=== PATIENT | male | born 1990 | race Caucasian/White ===

== ENCOUNTER 2019-12-25 12:19 | Emergency (ER) | payer OTHER ==
[2019-12-25 12:31] VITALS: BP 135/85; PULSE 109; RESP 18; TEMP 99.1
[2019-12-25] MEDS ORDERED: PENICILLIN VK 500MG STARTER 4 TAB BTL PO STA (13:05)
--- NOTE | 2019-12-25 13:08 | ED ---
General Adult HPI - General Chief complaint: Dental/Oral Stated complaint: tooth abcess Time Seen by Provider: 12/25/19 12:49 Source: patient, RN notes reviewed Mode of arrival: ambulatory Limitations: no limitations - History of Present Illness Initial comments: 29-year-old male presents to the emergency department for a chief complaint of dental pain. Patient states he has had this problem before a few years ago and he had an abscess that needed to be drained. Patient states he feels the same way at this time. States it is swelling in the right side of his face. States it started yesterday afternoon. Patient denies any difficulty swallowing or trismus. Denies any sublingual edema. Denies neck pain or stiffness. Denies fevers or chills. Patient states he never followed up with a dentist for his previous dental abscess.Patient has no other complaints at this time including shortness of breath, chest pain, abdominal pain, nausea or vomiting, headache, or visual changes. - Related Data Previous Rx's Medication Instructions Recorded Penicillin V Potassium [Pen Vee K] 500 mg PO Q6H 10 Days #40 tablet 12/25/19 Allergies Allergy/AdvReac Type Severity Reaction Status Date / Time No Known Allergies Allergy Verified 12/25/19 13:09 Review of Systems ROS Statement: Those systems with pertinent positive or pertinent negative responses have been documented in the HPI. ROS Other: All systems not noted in ROS Statement are negative. Past Medical History Past Medical History: No Reported History History of Any Multi-Drug Resistant Organisms: None Reported Past Surgical History: No Surgical Hx Reported Past Psychological History: No Psychological Hx Reported Past Alcohol Use History: Rare Past Drug Use History: None Reported General Exam Limitations: no limitations General appearance: alert, in no apparent distress Head exam: Present: atraumatic, normocephalic, normal inspection Eye exam: Present: normal appearance, PERRL, EOMI. Absent: scleral icterus, conjunctival injection, periorbital swelling ENT exam: Present: normal exam, mucous membranes moist, TM's normal bilaterally, normal external ear exam, other (Minimal edema noted to the right side of the face along the with sinus frontal sinus area. No sublingual edema). Absent: normal oropharynx (Patient has abscess above the right upper canine tooth.) Neck exam: Present: normal inspection, full ROM. Absent: tenderness, meningismus, lymphadenopathy Respiratory exam: Present: normal lung sounds bilaterally. Absent: respiratory distress, wheezes, rales, rhonchi, stridor Cardiovascular Exam: Present: regular rate, normal rhythm, normal heart sounds. Absent: systolic murmur, diastolic murmur, rubs, gallop, clicks GI/Abdominal exam: Present: soft, normal bowel sounds. Absent: distended, tenderness, guarding, rebound, rigid Neurological exam: Present: alert Course Vital Signs 12/25/19 12:28 Temperature 99.1 F Pulse Rate 109 H Respiratory 18 Rate Blood Pressure 135/85 O2 Sat by Pulse 99 Oximetry Procedures - Incision & Drainage Consent Obtained: verbal consent Indication: Dental abscess Site: oral Size (cm): 1 I&D Drainage Obtained: Pus Patient Tolerated Procedure: well, no complications Medical Decision Making - Medical Decision Making Dental abscess above the right upper canine was incised with 18-gauge needle, purulent material expelled. HPI and physical exam is documented otherwise. Patient tachycardic likely secondary to anxiety as he was nervous about having drainage done. Patient was started on penicillin. Patient will be discharged home to follow up with dentist. Disposition Clinical Impression: Dental abscess Disposition: HOME SELF-CARE Condition: Good Instructions (If sedation given, give patient instructions): Dental Abscess (ED) Additional Instructions: Please take antibiotic as directed. Take Motrin and Tylenol for pain. Ice the right side of the face. Follow-up with dentist in 1-2 days. If you have any worsening symptoms such as worsening swelling or fevers after being on antibiotics for 24 hours return to the emergency room. [facility] [address] [address] (existing clients only) New clients: [phone] 1st consult: $50 (includes XRs) Usually 30% less than private dentist for visits after. [employer] Have to pay $50 for Xrays and rest is covered [phone] Prescriptions: Penicillin V Potassium [Pen Vee K] 500 mg PO Q6H 10 Days #40 tablet Is patient prescribed a controlled substance at d/c from ED?: No Referrals: None,Stated [Primary Care Provider] - 1-2 days Time of Disposition: 13:07
== END 2019-12-25 13:28 | disposition home or self-care (01) ==
LOC: EC 12:19
DX: K04.7 Periapical abscess without sinus (principal)
CPT/HCPCS: 41800; 99282

== ENCOUNTER 2020-07-25 01:25 | Observation (INO) | payer OTHER ==
[2020-07-25] MEDS ORDERED: IBUPROFEN 800 MG TAB PO STA (01:44)
[2020-07-25] MEDS ORDERED: ACETAMINOPHEN TAB 500 MG TAB PO STA (01:44)
--- NOTE | 2020-07-25 02:05 | XR ---
EXAM: XR Chest, 1 View CLINICAL HISTORY: ITS.REASON XR Reason: fever TECHNIQUE: Frontal view of the chest. COMPARISON: none available FINDINGS: Lungs: Unremarkable. No consolidation. Pleural space: Unremarkable. No pneumothorax. Heart: Unremarkable. No cardiomegaly. Mediastinum: Unremarkable. Bones/joints: Unremarkable. IMPRESSION: No acute pulmonary process.
[2020-07-25] MEDS ORDERED: SODIUM CHLORIDE 0.9% 1,000 ML IV STA ×2 (02:12)
--- NOTE | 2020-07-25 02:13 | ED ---
Fever HPI - General Chief Complaint: Fever Stated Complaint: Weakness, Headache Time Seen by Provider: 07/25/20 01:44 Source: patient, RN notes reviewed, old records reviewed Mode of arrival: ambulatory Limitations: no limitations - History of Present Illness Initial Comments: This is a 29-year-old male presenting for severe weakness, patient feels like he may have coronavirus, has had cough bodyaches pains occasional nausea vomiting abdominal pain. Worsening symptoms for a few days now. No other significant recent travel history. Patient is unsure that he has significant sick contacts. No real prior medical history per the patient himself denies drugs denies alcohol or any other complaints MD Complaint: fever, weakness -: days(s) Temperature Source: subjective, oral Associated Symptoms: chills, rigors, myalgias, cough, abdominal pain, nausea Treatments Prior to Arrival: none - Related Data Home Medications Medication Instructions Recorded Confirmed No Known Home Medications 07/25/20 07/25/20 Allergies Allergy/AdvReac Type Severity Reaction Status Date / Time No Known Allergies Allergy Verified 07/25/20 06:36 Review of Systems ROS Statement: Those systems with pertinent positive or pertinent negative responses have been documented in the HPI. ROS Other: All systems not noted in ROS Statement are negative. Past Medical History Past Medical History: No Reported History History of Any Multi-Drug Resistant Organisms: None Reported Past Surgical History: No Surgical Hx Reported Past Psychological History: No Psychological Hx Reported Smoking Status: Current every day smoker Past Alcohol Use History: Rare Past Drug Use History: None Reported - Past Family History Father Additional Family Medical History / Comment(s): Triple bypass surgery Mother Family Medical History: Diabetes Mellitus General Exam Limitations: no limitations General appearance: alert, in no apparent distress Head exam: Present: atraumatic, normocephalic, normal inspection Eye exam: Present: normal appearance, PERRL, EOMI. Absent: scleral icterus, conjunctival injection, periorbital swelling ENT exam: Present: normal exam, mucous membranes moist Neck exam: Present: normal inspection. Absent: tenderness, meningismus, lymphadenopathy Respiratory exam: Present: normal lung sounds bilaterally. Absent: respiratory distress, wheezes, rales, rhonchi, stridor Cardiovascular Exam: Present: normal rhythm, tachycardia, normal heart sounds. Absent: systolic murmur, diastolic murmur, rubs, gallop, clicks GI/Abdominal exam: Present: soft, tenderness, guarding (Right upper quadrant), normal bowel sounds. Absent: distended, rebound, rigid Extremities exam: Present: normal inspection, full ROM, normal capillary refill. Absent: tenderness, pedal edema, joint swelling, calf tenderness Back exam: Present: normal inspection Neurological exam: Present: alert, oriented X3, CN II-XII intact Psychiatric exam: Present: normal affect, normal mood Skin exam: Present: warm, dry, intact, normal color. Absent: rash Course Vital Signs 07/25/20 07/25/20 07/25/20 01:28 02:58 04:24 Temperature 101.8 F H 100.2 F H 99.5 F Pulse Rate 111 H 98 90 Respiratory 24 20 18 Rate Blood Pressure 134/75 120/66 125/67 O2 Sat by Pulse 98 99 99 Oximetry 07/25/20 06:49 Temperature 98.9 F Pulse Rate 88 Respiratory 18 Rate Blood Pressure 123/70 O2 Sat by Pulse 98 Oximetry - Reevaluation(s) Reevaluation #1: 07/25/20 03:31 Medical record is reviewed Reevaluation #2: 07/25/20 03:31 Patient's fevers improved but still just generally feels unwell here in the ER Reevaluation #3: 07/25/20 03:31 Patient informed of initial results and questions are answered - Consultations Consultation #1: spoke w Dr Keating who will consult. spoke w Dr Poole who will see patient in consult spoke w Ian Lugo who is ok for admission Medical Decision Making - Medical Decision Making 9 male presents with fever today, significant jaundice and elevated fever. Patient has one week of positive illness, all imaging is negative. Patient will be admitted for both GI consultation, further testing pending - Lab Data Result diagrams: 07/25/20 02:17 07/25/20 02:17 Lab Results 07/25/20 07/25/20 07/25/20 Range/Units 01:46 02:17 02:17 WBC 5.4 (3.8-10.6) k/uL RBC 4.81 (4.30-5.90) m/uL Hgb 14.7 (13.0-17.5) gm/dL Hct 41.6 (39.0-53.0) % MCV 86.5 (80.0-100.0) fL MCH 30.5 (25.0-35.0) pg MCHC 35.3 (31.0-37.0) g/dL RDW 12.6 (11.5-15.5) % Plt Count 100 L (150-450) k/uL MPV 9.9 Neutrophils % (Manual) 53 % Band Neuts % (Manual) 12 % Lymphocytes % (Manual) 21 % Monocytes % (Manual) 14 % Neutrophils # (Manual) 3.50 (1.3-7.7) k/uL Lymphocytes # (Manual) 1.13 (1.0-4.8) k/uL Monocytes # (Manual) 0.76 (0-1.0) k/uL Nucleated RBCs 0 (0-0) /100 WBC Manual Slide Review Performed RBC Morphology Normal PT (9.0-12.0) sec INR (<1.2) APTT (22.0-30.0) sec Sodium 127 L (137-145) mmol/L Potassium 4.1 (3.5-5.1) mmol/L Chloride 93 L (98-107) mmol/L Carbon Dioxide 25 (22-30) mmol/L Anion Gap 9 mmol/L BUN 13 (9-20) mg/dL Creatinine 0.78 (0.66-1.25) mg/dL Est GFR (CKD-EPI)AfAm >90 (>60 ml/min/1.73 sqM) Est GFR (CKD-EPI)NonAf >90 (>60 ml/min/1.73 sqM) Glucose 129 H (74-99) mg/dL Plasma Lactic Acid Javi (0.7-2.0) mmol/L Calcium 8.6 (8.4-10.2) mg/dL Magnesium 1.9 (1.6-2.3) mg/dL Ferritin 6588.9 H (22.0-322.0) ng/mL Total Bilirubin 6.6 H (0.2-1.3) mg/dL Conjugated Bilirubin 3.8 H (0.0-0.3) mg/dL Unconjugated Bilirubin 1.1 (0.0-1.1) mg/dL Delta Bilirubin 1.7 H (0.0-0.2) mg/dL GGT (15-73) U/L AST 237 H (17-59) U/L ALT 238 H (4-49) U/L Alkaline Phosphatase 324 H (38-126) U/L Ammonia (<30) umol/L Lactate Dehydrogenase 2712 H (313-618) U/L C-Reactive Protein 65.4 H (<10.0) mg/L Total Protein 6.7 (6.3-8.2) g/dL Albumin 3.6 (3.5-5.0) g/dL Lipase 175 (23-300) U/L Acetaminophen 13.9 ug/mL Serum Alcohol <10 mg/dL Coronavirus (PCR) Not Detected (Not Detectd) Hepatitis A IgM Ab (Non-Reactive) Hep Bs Antigen (Non-Reactive) Hep B Core IgM Ab (Non-Reactive) Hep C IgG Ab (Non-Reactive) Heterophile Antibody (Negative) Influenza Type A RNA (Not Detectd) Influenza Type B (PCR) (Not Detectd) 07/25/20 07/25/20 07/25/20 Range/Units 02:17 02:17 02:17 WBC (3.8-10.6) k/uL RBC (4.30-5.90) m/uL Hgb (13.0-17.5) gm/dL Hct (39.0-53.0) % MCV (80.0-100.0) fL MCH (25.0-35.0) pg MCHC (31.0-37.0) g/dL RDW (11.5-15.5) % Plt Count (150-450) k/uL MPV Neutrophils % (Manual) % Band Neuts % (Manual) % Lymphocytes % (Manual) % Monocytes % (Manual) % Neutrophils # (Manual) (1.3-7.7) k/uL Lymphocytes # (Manual) (1.0-4.8) k/uL Monocytes # (Manual) (0-1.0) k/uL Nucleated RBCs (0-0) /100 WBC Manual Slide Review RBC Morphology PT 11.3 (9.0-12.0) sec INR 1.1 (<1.2) APTT 24.5 (22.0-30.0) sec Sodium (137-145) mmol/L Potassium (3.5-5.1) mmol/L Chloride (98-107) mmol/L Carbon Dioxide (22-30) mmol/L Anion Gap mmol/L BUN (9-20) mg/dL Creatinine (0.66-1.25) mg/dL Est GFR (CKD-EPI)AfAm (>60 ml/min/1.73 sqM) Est GFR (CKD-EPI)NonAf (>60 ml/min/1.73 sqM) Glucose (74-99) mg/dL Plasma Lactic Acid Javi 0.9 (0.7-2.0) mmol/L Calcium (8.4-10.2) mg/dL Magnesium (1.6-2.3) mg/dL Ferritin (22.0-322.0) ng/mL Total Bilirubin (0.2-1.3) mg/dL Conjugated Bilirubin (0.0-0.3) mg/dL Unconjugated Bilirubin (0.0-1.1) mg/dL Delta Bilirubin (0.0-0.2) mg/dL GGT (15-73) U/L AST (17-59) U/L ALT (4-49) U/L Alkaline Phosphatase (38-126) U/L Ammonia 9 (<30) umol/L Lactate Dehydrogenase (313-618) U/L C-Reactive Protein (<10.0) mg/L Total Protein (6.3-8.2) g/dL Albumin (3.5-5.0) g/dL Lipase (23-300) U/L Acetaminophen ug/mL Serum Alcohol mg/dL Coronavirus (PCR) (Not Detectd) Hepatitis A IgM Ab Non-Reactive (Non-Reactive) Hep Bs Antigen Non-Reactive (Non-Reactive) Hep B Core IgM Ab Non-Reactive (Non-Reactive) Hep C IgG Ab Non-Reactive (Non-Reactive) Heterophile Antibody (Negative) Influenza Type A RNA (Not Detectd) Influenza Type B (PCR) (Not Detectd) 07/25/20 07/25/20 07/25/20 Range/Units 02:17 02:17 06:56 WBC (3.8-10.6) k/uL RBC (4.30-5.90) m/uL Hgb (13.0-17.5) gm/dL Hct (39.0-53.0) % MCV (80.0-100.0) fL MCH (25.0-35.0) pg MCHC (31.0-37.0) g/dL RDW (11.5-15.5) % Plt Count (150-450) k/uL MPV Neutrophils % (Manual) % Band Neuts % (Manual) % Lymphocytes % (Manual) % Monocytes % (Manual) % Neutrophils # (Manual) (1.3-7.7) k/uL Lymphocytes # (Manual) (1.0-4.8) k/uL Monocytes # (Manual) (0-1.0) k/uL Nucleated RBCs (0-0) /100 WBC Manual Slide Review RBC Morphology PT (9.0-12.0) sec INR (<1.2) APTT (22.0-30.0) sec Sodium (137-145) mmol/L Potassium (3.5-5.1) mmol/L Chloride (98-107) mmol/L Carbon Dioxide (22-30) mmol/L Anion Gap mmol/L BUN (9-20) mg/dL Creatinine (0.66-1.25) mg/dL Est GFR (CKD-EPI)AfAm (>60 ml/min/1.73 sqM) Est GFR (CKD-EPI)NonAf (>60 ml/min/1.73 sqM) Glucose (74-99) mg/dL Plasma Lactic Acid Javi (0.7-2.0) mmol/L Calcium (8.4-10.2) mg/dL Magnesium (1.6-2.3) mg/dL Ferritin (22.0-322.0) ng/mL Total Bilirubin (0.2-1.3) mg/dL Conjugated Bilirubin (0.0-0.3) mg/dL Unconjugated Bilirubin (0.0-1.1) mg/dL Delta Bilirubin (0.0-0.2) mg/dL GGT 324 H (15-73) U/L AST (17-59) U/L ALT (4-49) U/L Alkaline Phosphatase (38-126) U/L Ammonia (<30) umol/L Lactate Dehydrogenase (313-618) U/L C-Reactive Protein (<10.0) mg/L Total Protein (6.3-8.2) g/dL Albumin (3.5-5.0) g/dL Lipase (23-300) U/L Acetaminophen ug/mL Serum Alcohol mg/dL Coronavirus (PCR) (Not Detectd) Hepatitis A IgM Ab (Non-Reactive) Hep Bs Antigen (Non-Reactive) Hep B Core IgM Ab (Non-Reactive) Hep C IgG Ab (Non-Reactive) Heterophile Antibody Positive (Negative) Influenza Type A RNA Not Detected (Not Detectd) Influenza Type B (PCR) Not Detected (Not Detectd) - EKG Data -: EKG Interpreted by Me (EKG is sinus rythm rate of 93 AL 114 QRS 94 QTC 397) - Radiology Data Radiology results: report reviewed (CT of the abdomen and pelvis color ultrasound negative for acute disease), image reviewed Critical Care Time Critical Care Time: Yes Total Critical Care Time: 31 Disposition Clinical Impression: Fever, Hyperbilirubinemia, Hepatitis, Viral infection Disposition: ADMITTED IP TO THIS HOSP Condition: Serious Is patient prescribed a controlled substance at d/c from ED?: No
[2020-07-25 02:43] LABS: HCT 41.6 % (39.0-53.0); HGB 14.7 gm/dL (13.0-17.5); MCH 30.5 pg (25.0-35.0); MCHC 35.3 g/dL (31.0-37.0); MCV 86.5 fL (80.0-100.0); Mean Platelet Volume 9.9; Platelet Count 100 k/uL (150-450); RBC 4.81 m/uL (4.30-5.90); RDW 12.6 % (11.5-15.5); WBC 5.4 k/uL (3.8-10.6)
[2020-07-25 02:49] LABS: INR 1.1 (<1.2); Partial Thromboplastin Time 24.5 sec (22.0-30.0); Prothrombin Time 11.3 sec (9.0-12.0)
[2020-07-25 02:53] LABS: Lactic Acid, Venous 0.9 mmol/L (0.7-2.0)
[2020-07-25 02:54] LABS: AST 237 U/L (17-59); African American GFR (CKD) >90 (>60 ml/min/1.73 sqM); Albumin 3.6 g/dL (3.5-5.0); Alkaline Phosphatase 324 U/L (38-126); Bilirubin, Conjugated 3.8 mg/dL (0.0-0.3); Bilirubin, Delta 1.7 mg/dL (0.0-0.2); Bilirubin,Unconjugated 1.1 mg/dL (0.0-1.1); Blood Urea Nitrogen 13 mg/dL (9-20); C Reactive Protein 65.4 mg/L (<10.0); Carbon Dioxide 25 mmol/L (22-30); Chloride 93 mmol/L (98-107); Glucose 129 mg/dL (74-99); Non-African American GFR(CKD) >90 (>60 ml/min/1.73 sqM); Total Bilirubin 6.6 mg/dL (0.2-1.3); Total Protein 6.7 g/dL (6.3-8.2)
[2020-07-25 03:10] LABS: ALT 238 U/L (4-49); Acetaminophen 13.9 ug/mL; Alcohol <10 mg/dL; Anion Gap 9 mmol/L; Calcium 8.6 mg/dL (8.4-10.2); Lipase 175 U/L (23-300); Magnesium 1.9 mg/dL (1.6-2.3); Potassium 4.1 mmol/L (3.5-5.1); Sodium 127 mmol/L (137-145)
[2020-07-25 03:12] LABS: LDH 2712 U/L (313-618)
[2020-07-25] MEDS ORDERED: AMPICILLIN-SULBACTAM 3 GM in SODIUM CHLORIDE 0.9% 100 ML IVPB STA (03:18)
--- NOTE | 2020-07-25 03:47 | CT ---
EXAM: CT Abdomen and Pelvis With Intravenous Contrast CLINICAL HISTORY: ITS.REASON CT Reason: pain TECHNIQUE: Axial computed tomography images of the abdomen and pelvis with intravenous contrast. CTDI is 15.87 mGy and DLP is 710.2 mGy-cm. This CT exam was performed using one or more of the following dose reduction techniques: automated exposure control, adjustment of the mA and/or kV according to patient size, and/or use of iterative reconstruction technique. COMPARISON: none available FINDINGS: Lung bases: Unremarkable. No mass. No consolidation. ABDOMEN: Liver: Unremarkable. No mass. Gallbladder and bile ducts: Unremarkable. No calcified stones. No ductal dilation. Pancreas: Unremarkable. No mass. No ductal dilation. Spleen: Unremarkable. No splenomegaly. Adrenals: Unremarkable. No mass. Kidneys and ureters: Unremarkable. No solid mass. No hydronephrosis. Stomach and bowel: Moderate fecal burden throughout the colon. No obstruction. No mucosal thickening. PELVIS: Appendix: No findings to suggest acute appendicitis. Bladder: Unremarkable. No mass. Reproductive: Unremarkable as visualized. ABDOMEN and PELVIS: Intraperitoneal space: Unremarkable. No free air. No significant fluid collection. Bones/joints: No acute fracture. No dislocation. Soft tissues: Unremarkable. Vasculature: Unremarkable. No abdominal aortic aneurysm. Lymph nodes: Unremarkable. No enlarged lymph nodes. IMPRESSION: No acute intra-abdominal process.
[2020-07-25] MEDS ORDERED: ONDANSETRON 4 MG/2 ML VIAL IVP PRN (04:13)
[2020-07-25] MEDS ORDERED: NALOXONE 0.4 MG/ML 1 ML VIAL IV PRN (04:13)
[2020-07-25] MEDS ORDERED: MORPHINE SULFATE 4 MG/ML SYRINGE IV PRN (04:13)
[2020-07-25 04:20] LABS: Band Neutrophils % 12 %; Lymphocytes # (M) 1.13 k/uL (1.0-4.8); Monocytes # (M) 0.76 k/uL (0-1.0); Neutrophils % (M) 53 %; Nucleated Red Blood Cells 0 /100 WBC (0-0); Total Cells Counted 100
--- NOTE | 2020-07-25 06:09 | US ---
EXAM: US Abdomen Limited, Gallbladder CLINICAL HISTORY: ITS.REASON US Reason: pain TECHNIQUE: Real-time ultrasound of the right upper quadrant with image documentation. COMPARISON: none available FINDINGS: Gallbladder: Unremarkable. No gallstones. Common bile duct: Unremarkable as visualized. No stones. No dilation. Pancreas: Unremarkable as visualized. IMPRESSION: No cholelithiasis or sonographic evidence of cholecystitis. No intrahepatic or extrahepatic biliary ductal dilation.
[2020-07-25] MEDS ORDERED: MORPHINE SULFATE 2 MG/ML SYRINGE IV PRN (07:27)
[2020-07-25] MEDS: PANTOPRAZOLE 40 MG/10 ML VIAL IV SCH (08:12)
--- NOTE | 2020-07-25 08:28 | P.GSCN ---
History of Present Illness Consult date: 07/25/20 History of present illness: CHIEF COMPLAINT: Hyperbilirubinemia HISTORY OF PRESENT ILLNESS: The patient is a 29 year old male who comes in with jaundice. He reports intermittent fevers. I was notified by ER provider regarding patient's presentation for which abdominal ultrasound was obtained to evaluate for ascending cholangitis. Patient at the time of my assessment reported mild to moderate right upper abdominal pain. No reports of prior events. He denies any personal history or family history of gallbladder disease. He denies any knowledge of prior hepatitis. He denies any aggravating factors. He reports feeling ill for more than 3 days. He has been taking tylenol for fevers at home. General surgery was consulted for hyperbilirubinemia and elevated liver enzymes with abdominal pain. PAST MEDICAL HISTORY: See list and reviewed PAST SURGICAL HISTORY: See list and reviewed MEDICATIONS: See list and reviewed ALLERGIES: See list and reviewed SOCIAL HISTORY: See list and reviewed FAMILY HISTORY: See list and reviewed REVIEW OF ORGAN SYSTEMS: CONSTITUTIONAL: No recent weight loss. EYES: Denies any trouble with vision. No glasses. HEENT: No difficulties with hearing. No nosebleeds. No difficulty swallowing. RESPIRATORY: Denies pneumonia. Denies any troubles with breathing or dyspnea on exertion. CARDIOVASCULAR: Denies any chest pain, palpitations, or recent heart attacks. GASTROINTESTINAL: Denies fatty food intolerance. GENITOURINARY: Denies any blood in urine or increased urinary frequency. NEUROLOGICAL: Denies any numbness or tingling along the distal extremities. No seizure disorders or headaches. MUSCULOSKELETAL: Denies any back pain, stiffness or joint arthritis. SKIN: No current skin cancer. No rash. PSYCHIATRIC: Denies current depression or suicidal thoughts. ENDOCRINE: Denies current thyroid disorders. Denies any blood sugar glucose intolerance. HEME/LYMPHATIC: Denies any lumps and bumps around the neck. No recent deep venous thrombosis. ALLERGY/IMMUNOLOGY: No immunoglobulin therapy. No immune deficiencies. BREAST: Denies current breast lumps, pain or nipple discharge. PHYSICAL EXAM: VITALS: Reviewed CONSTITUTIONAL: Well developed and in no acute distress. EYES: Conjuctivae with sclera icterus. Extraocular movements grossly intact. HEAD, EARS, NOSE, THROAT: Moist buccal mucosa. Head is atraumatic, normocephalic. Hears conversational speech. No nasal drainage. NECK: No JV distention. No thyroidomegaly. RESPIRATORY: Non-labored respirations and equal bilateral excursions. No gross wheezes. CARDIOVASCULAR: Regular rate and rhythm. Palpable 2+ radial pulses. ABDOMEN: Soft. Scaphoid. Tender right upper quadrant. No peritonitis. MUSCULOSKELETAL: Nail and fingers with good capillary refill. SKIN: Warm and well perfused with good skin turgor. NEUROLOGIC: Cranial nerves II through XII grossly intact. No focal or lateralizing signs. PSYCH: Appropriate affect. Alert and oriented to person, place and time. Displays appropriate insight. CLINCAL LABS: Reviewed. Total bilirubin elevated 6.6. WBC normal. AST and ALT including alkaline phosphatase elevated over 200s. Coronavirus negative. IMAGING: Ultrasound of the gallbladder independently reviewed by me. No evidence of gallstones. No evidence of acute cholecystitis. No evidence of biliary obstruction. RADIOLOGY: Report reviewed for ultrasound right upper quadrant with CBD within normal limits as well. ASSESSMENT: 1. Hyperbilirubinemia 2. Elevated LFTs 3. Jaundice 4. Right upper quadrant abdominal pain. PLAN: 1. Recommend GI consultation for work-up of jaundice 2. No surgical intervention. 3. IV fluid hydration. 4. Will need additional blood chemistries including hepatitis panel. Otherwise nonsurgical management. 5. Management deferred to gastroenterology team Thank you for this kind consultation. Past Medical History Past Medical History: No Reported History History of Any Multi-Drug Resistant Organisms: None Reported Past Surgical History: No Surgical Hx Reported Past Psychological History: No Psychological Hx Reported Smoking Status: Current every day smoker Past Alcohol Use History: Rare Past Drug Use History: None Reported - Past Family History Father Additional Family Medical History / Comment(s): Triple bypass surgery Mother Family Medical History: Diabetes Mellitus Medications and Allergies Home Medications Medication Instructions Recorded Confirmed Type No Known Home Medications 07/25/20 07/25/20 History Allergies Allergy/AdvReac Type Severity Reaction Status Date / Time No Known Allergies Allergy Verified 07/25/20 06:36 Surgical - Exam Vital Signs Temp Pulse Resp BP Pulse Ox 101.8 F H 111 H 24 134/75 98 07/25/20 01:28 07/25/20 01:28 07/25/20 01:28 07/25/20 01:28 07/25/20 01:28 Results - Labs 07/26/20 05:36 07/28/20 09:05 Abnormal Lab Results - Last 24 Hours (Table) 07/25/20 07/25/20 07/25/20 Range/Units 02:17 02:17 02:17 Plt Count 100 L (150-450) k/uL Sodium 127 L (137-145) mmol/L Chloride 93 L (98-107) mmol/L Glucose 129 H (74-99) mg/dL Total Bilirubin 6.6 H (0.2-1.3) mg/dL Conjugated Bilirubin 3.8 H (0.0-0.3) mg/dL Delta Bilirubin 1.7 H (0.0-0.2) mg/dL GGT 324 H (15-73) U/L AST 237 H (17-59) U/L ALT 238 H (4-49) U/L Alkaline Phosphatase 324 H (38-126) U/L Lactate Dehydrogenase 2712 H (313-618) U/L C-Reactive Protein 65.4 H (<10.0) mg/L Diabetes panel 07/25/20 Range/Units 02:17 Sodium 127 L (137-145) mmol/L Potassium 4.1 (3.5-5.1) mmol/L Chloride 93 L (98-107) mmol/L Carbon Dioxide 25 (22-30) mmol/L BUN 13 (9-20) mg/dL Creatinine 0.78 (0.66-1.25) mg/dL Glucose 129 H (74-99) mg/dL Calcium 8.6 (8.4-10.2) mg/dL AST 237 H (17-59) U/L ALT 238 H (4-49) U/L Alkaline Phosphatase 324 H (38-126) U/L Total Protein 6.7 (6.3-8.2) g/dL Albumin 3.6 (3.5-5.0) g/dL Calcium panel 07/25/20 Range/Units 02:17 Calcium 8.6 (8.4-10.2) mg/dL Albumin 3.6 (3.5-5.0) g/dL Pituitary panel 07/25/20 Range/Units 02:17 Sodium 127 L (137-145) mmol/L Potassium 4.1 (3.5-5.1) mmol/L Chloride 93 L (98-107) mmol/L Carbon Dioxide 25 (22-30) mmol/L BUN 13 (9-20) mg/dL Creatinine 0.78 (0.66-1.25) mg/dL Glucose 129 H (74-99) mg/dL Calcium 8.6 (8.4-10.2) mg/dL Adrenal panel 07/25/20 Range/Units 02:17 Sodium 127 L (137-145) mmol/L Potassium 4.1 (3.5-5.1) mmol/L Chloride 93 L (98-107) mmol/L Carbon Dioxide 25 (22-30) mmol/L BUN 13 (9-20) mg/dL Creatinine 0.78 (0.66-1.25) mg/dL Glucose 129 H (74-99) mg/dL Calcium 8.6 (8.4-10.2) mg/dL Total Bilirubin 6.6 H (0.2-1.3) mg/dL AST 237 H (17-59) U/L ALT 238 H (4-49) U/L Alkaline Phosphatase 324 H (38-126) U/L Total Protein 6.7 (6.3-8.2) g/dL Albumin 3.6 (3.5-5.0) g/dL Assessment and Plan (1) Right upper quadrant abdominal pain Status: Acute Code(s): R10.11 - RIGHT UPPER QUADRANT PAIN SNOMED Code(s): 148141023 (2) Jaundice Status: Acute Code(s): R17 - UNSPECIFIED JAUNDICE SNOMED Code(s): 90765255 (3) Elevated liver enzymes Status: Acute Code(s): R74.8 - ABNORMAL LEVELS OF OTHER SERUM ENZYMES SNOMED Code(s): 472677929 (4) Fever Status: Acute Code(s): R50.9 - FEVER, UNSPECIFIED SNOMED Code(s): 138760634 (5) Hyperbilirubinemia Status: Acute Code(s): E80.6 - OTHER DISORDERS OF BILIRUBIN METABOLISM SNOMED Code(s): 29059653
--- NOTE | 2020-07-25 08:31 | P.HPIM ---
History of Present Illness H&P Date: 07/25/20 Chief Complaint: Not feeling well This is a 29-year-old male with no significant past medical history who presented to the emergency room with several days of not feeling well. Patient said that for the past 3 or 4 days he was feeling more fatigued and tired. He reported lack of appetite and has not been eating much. He had occasional chills but no documented fevers at home. He initially thought that he may have COVID-19. He denies any significant sick contact. He denies any shortness of breath or cough. No abdominal pain or diarrhea. His sister was concerned about him today and asked him to come to the emergency room. Patient was evaluated in the ER and was noted to be jaundiced. Initial lab work showed transaminitis with elevated bilirubin level. Patient had an ultrasound and a computed tomography scan of the abdomen which were both unremarkable. Patient himself denies any alcohol use. He does not use Tylenol. He denies any illicit drug use. He smokes marijuana. No known history of chronic hepatitis. Patient was also noted to have evidence of sepsis in the ER but COVID-19 and influenza screen were negative. Patient was admitted to the hospital for further evaluation Review of Systems Review of system: 14 points review of systems were obtained and were negative except to what were mentioned in the HPI. Past Medical History Past Medical History: No Reported History History of Any Multi-Drug Resistant Organisms: None Reported Past Surgical History: No Surgical Hx Reported Past Psychological History: No Psychological Hx Reported Smoking Status: Current every day smoker Past Alcohol Use History: Rare Past Drug Use History: None Reported Medications and Allergies Home Medications Medication Instructions Recorded Confirmed Type No Known Home Medications 07/25/20 07/25/20 History Allergies Allergy/AdvReac Type Severity Reaction Status Date / Time No Known Allergies Allergy Verified 07/25/20 06:36 Physical Exam Vitals: Vital Signs Temp Pulse Resp BP Pulse Ox 07/25/20 06:49 98.9 F 88 18 123/70 98 07/25/20 04:24 99.5 F 90 18 125/67 99 07/25/20 02:58 100.2 F H 98 20 120/66 99 07/25/20 01:28 101.8 F H 111 H 24 134/75 98 Intake and Output 07/24/20 07/25/20 07/25/20 22:59 06:59 14:59 Other: Weight 70.307 kg General: The patient is awake and alert, in no distress. He appeared jaundiced Eye: there is icteric sclera bilaterally Neck: The neck is supple, there is no JVD. Cardiovascular: Normal S1-S2, no S3-S4, no murmurs. Respiratory: Lungs clear to auscultation bilaterally Gastrointestinal: Abdomen is soft, nontender Musculoskeletal: There is no pedal edema. Neurological:. Speech is normal. Skin: Skin is warm and dry Results CBC & Chem 7: 07/25/20 02:17 07/25/20 02:17 Labs: Abnormal Lab Results - Last 24 Hours (Table) 07/25/20 07/25/20 07/25/20 Range/Units 02:17 02:17 02:17 Plt Count 100 L (150-450) k/uL Sodium 127 L (137-145) mmol/L Chloride 93 L (98-107) mmol/L Glucose 129 H (74-99) mg/dL Total Bilirubin 6.6 H (0.2-1.3) mg/dL Conjugated Bilirubin 3.8 H (0.0-0.3) mg/dL Delta Bilirubin 1.7 H (0.0-0.2) mg/dL GGT 324 H (15-73) U/L AST 237 H (17-59) U/L ALT 238 H (4-49) U/L Alkaline Phosphatase 324 H (38-126) U/L Lactate Dehydrogenase 2712 H (313-618) U/L C-Reactive Protein 65.4 H (<10.0) mg/L Assessment and Plan Assessment: This is a 29-year-old male with no significant past medical history who presented to the emergency room with flulike symptoms. Patient was evaluated in the ER and admitted to the hospital for further management of his medical problems noted below. 1. Sepsis without septic shock: May be attributed to viral syndrome. COVID-19 and influenza screen negative. No evidence of bacterial infection. Patient was given IV Unasyn in the ER. I would hold off any further antibiotic and monitor closely. Continue aggressive IV fluid hydration with normal saline at 1:30 mL per hour. 2. Transaminitis with hyperbilirubinemia: Computed tomography scan of the abdomen and pelvis and ultrasound showed no acute findings. Patient is scheduled for MRCP. Viral hepatitis panel pending. GI consulted for further evaluation, appreciate recommendations. Hepatitis lab work panel was ordered for further evaluation. Patient denies alcohol or Tylenol use in both levels are negative. 3. Hypovolemic hyponatremia: Continue IV fluid hydration as above 4. DVT prophylaxis with subcu heparin
[2020-07-25] MEDS: HEPARIN SODIUM,PORCINE 5,000 UNIT/ML 1 ML VIAL SQ SCH ×2 (09:55→20:11)
[2020-07-25 09:56] LABS: Hepatitis A Antibody IgM Non-Reactive (Non-Reactive); Hepatitis B Core IgM Non-Reactive (Non-Reactive); Hepatitis B Surface Antigen Non-Reactive (Non-Reactive); Hepatitis C IgG Antibody Non-Reactive (Non-Reactive)
[2020-07-25 11:24] LABS: Appearance,Urine Clear (Clear); Bilirubin,Urine 1+ (Negative); Blood,Urine Small (Negative); Color,Urine Yellow; Glucose,Urine (UA) Negative (Negative); Ketones,Urine 1+ (Negative); Leukocyte Esterase,Urine Negative (Negative); Nitrite,Urine Negative (Negative); PH, Urine 6.5 (5.0-8.0); Protein,Urine Trace (Negative); Specific Gravity,Urine 1.016 (1.001-1.035); Urobilinogen,Urine <2.0 mg/dL (<2.0); WBC,Urine 1 /hpf (0-5)
[2020-07-25 12:24] LABS: Ferritin 6588.9 ng/mL (22.0-322.0)
--- NOTE | 2020-07-25 14:16 | CONS ---
CONSULTATION DATE OF DICTATION: July 25, 2020. REASON FOR CONSULTATION: Elevated LFTs and jaundice. HISTORY OF PRESENT ILLNESS: The patient is a 29-year-old pleasant white male with no significant past medical history, presents to the hospital with fever, chills, and myalgia for the last one week duration. His symptoms started last Tuesday and he did have some body aches followed by low-grade fever and decreasing appetite. For the last 3 or 4 days, he started having fever between 103 and 104, started experiencing some vague epigastric discomfort and some nausea but no emesis. He came to the emergency room yesterday and was noted to have elevated LFTs and jaundice and hence we are consulted for further evaluation. The patient has no history of chronic liver disease. No history of jaundice or hepatitis in the past. He denies any high-risk behavior. No alcohol use. He denies taking any [id number] medications or recent antibiotics. He has been taking some Tylenol and Motrin for the symptoms of fever and body aches. In the ER, he was noted to have bilirubin of 6.6, AST was 237, ALT was 238, alkaline phosphatase was 324. BUN and creatinine were within normal limits. Sodium was 127. Platelets were 100. WBC 5.4, hemoglobin 14.7. Hepatitis serologies for A, B and C were negative. COVID-19 was negative. PAST MEDICAL HISTORY: None. PAST SURGICAL HISTORY: None. MEDICATIONS: None. ALLERGIES: No known drug allergies. SOCIAL HISTORY: Chronic smoker. No alcohol use. FAMILY HISTORY: Unremarkable. REVIEW OF SYSTEMS: CARDIOPULMONARY: He denies any chest pain or shortness of breath. GENITOURINARY: No dysuria or hematuria except for yellowish colored urine for the last one week duration. ENT/VISION: Unremarkable. CONSTITUTIONAL: No recent weight loss. He does have fever, chills but no night sweats. HEMATOLOGY: Unremarkable. PSYCHIATRIC: Unremarkable. NEUROLOGY: Unremarkable. ENDOCRINE: Unremarkable. ONCOLOGY: Unremarkable. PHYSICAL EXAMINATION: He appears comfortable. No apparent distress. Vital signs are stable. T-max was 101.8, temperature 98, blood pressure 134/75. HEENT EXAMINATION: Unremarkable. Conjunctivae pink. Sclerae icteric. Oral cavity, no lesions. NECK: No JVD or lymph node enlargement. CHEST: Was clear to auscultation. HEART: Regular rate and rhythm. ABDOMEN: Soft. There was very minimal tenderness in the epigastric area. Liver and spleen were not palpable. EXTREMITIES: No pedal edema. SKIN: No rashes. NEURO: He is alert and oriented x3. No focal deficits. LABS: From yesterday, WBC 5.4, hemoglobin 14.7, platelets 100,000. INR is 1.1. Sodium 127, potassium 4.1, chloride 93, BUN 13, creatinine 0.78. T-bilirubin is 6.5. AST and ALT are 237 and 238 respectively. Alkaline phosphatase 324. CRP 65. Lactate dehydrogenase is 2712. Ultrasound of the gallbladder did not show any evidence of gallstones or biliary ductal dilation. CAT scan of the abdomen showed normal-appearing liver with no evidence of biliary ductal dilation. IMPRESSION: This is a patient who presented to the hospital with myalgias, fever, chills, decreased appetite and vague abdominal pain for the last one week duration with a T-max of 102 last night. Noted to have elevated LFTs and jaundice with T-bilirubin of 6.6, ALT and AST in the range of 200s. Ultrasound and CAT scan did not show any evidence of gallstones or biliary ductal dilation. Hepatitis serologies for A, B and C are negative. The clinical and biochemical picture are consistent with an acute viral syndrome. His heterophile antibody was positive and likely this may represent acute EBV hepatitis. On the imaging studies, there is no evidence of biliary ductal obstruction. RECOMMENDATIONS: 1. Obtain EBV IgM antibody as well as CMV antibody. 2. Start him on a regular diet. 3. Monitor LFTs closely. 4. Avoid hepatotoxic medications. 5. We will follow with you. Thank you for this consultation. MMODL / IJN: [id number] /
[2020-07-25 17:13] LABS: Protein, Total 5.5 g/dL (6.2-8.2)
[2020-07-25 18:03] LABS: EBV-EA (IgG) <0.2 AI; EBV-EBNA(IgG) 5.4 AI; EBV-VCA (IgG) >8.0 AI; EBV-VCA (IgM) 0.8 AI
[2020-07-25 18:36] LABS: Alpha Fetoprotein, Tumor Mkr <2.5 ng/mL (0.0-7.9)
[2020-07-26 06:31] LABS: ALT 297 U/L (4-49); AST 308 U/L (17-59); African American GFR (CKD) >90 (>60 ml/min/1.73 sqM); Albumin/Globulin Ratio 1.2; Alkaline Phosphatase 322 U/L (38-126); Anion Gap 4 mmol/L; Blood Urea Nitrogen 11 mg/dL (9-20); Calcium 7.9 mg/dL (8.4-10.2); Carbon Dioxide 28 mmol/L (22-30); Chloride 96 mmol/L (98-107); Globulin 2.6 g/dL; Glucose 115 mg/dL (74-99); Non-African American GFR(CKD) >90 (>60 ml/min/1.73 sqM); Potassium 4.1 mmol/L (3.5-5.1); Sodium 128 mmol/L (137-145); Total Bilirubin 6.8 mg/dL (0.2-1.3); Total Protein 5.6 g/dL (6.3-8.2)
[2020-07-26 06:37] LABS: Prothrombin Time 10.8 sec (9.0-12.0)
[2020-07-26 06:51] LABS: HCT 37.3 % (39.0-53.0); HGB 12.9 gm/dL (13.0-17.5); MCH 30.5 pg (25.0-35.0); MCHC 34.6 g/dL (31.0-37.0); MCV 88.3 fL (80.0-100.0); Mean Platelet Volume 9.3; Platelet Count 133 k/uL (150-450); RBC 4.22 m/uL (4.30-5.90); RDW 12.9 % (11.5-15.5); WBC 5.8 k/uL (3.8-10.6)
[2020-07-26] MEDS: PANTOPRAZOLE 40 MG/10 ML VIAL IV SCH (07:11)
[2020-07-26] MEDS: HEPARIN SODIUM,PORCINE 5,000 UNIT/ML 1 ML VIAL SQ SCH ×2 (07:11→20:49)
[2020-07-26] MEDS: IBUPROFEN 600 MG TAB PO PRN (07:16)
--- NOTE | 2020-07-26 10:01 | P.PN ---
Subjective Progress Note Date: 07/26/20 Patient is still reporting malaise and decreased appetite today. He did not get out of bed yesterday. He denies any abdominal pain. No documented fever in the last 24 hours. Liver function tests and total bilirubin about the same compared to yesterday. Objective - Vital Signs Vital signs: Vital Signs Temp 99.1 F 07/26/20 07:31 Pulse 75 07/26/20 07:31 Resp 16 07/26/20 07:31 BP 122/66 07/26/20 07:31 Pulse Ox 100 07/26/20 07:31 Intake & Output 07/25/20 07/26/20 07/26/20 18:59 06:59 18:59 Weight 70.307 kg Other: Voiding Method Toilet Toilet # Voids 4 3 - Exam General: The patient is awake and alert, in no distress Eye: there is normal conjunctiva bilaterally. Neck: The neck is supple, there is no JVD. Cardiovascular: Normal S1-S2, no S3-S4, no murmurs. Respiratory: Lungs clear to auscultation bilaterally Gastrointestinal: Abdomen is soft, nontender Musculoskeletal: There is no pedal edema. Neurological:. Speech is normal. Skin: Skin is warm and dry - Labs CBC & Chem 7: 07/26/20 05:36 07/26/20 05:36 Labs: Abnormal Lab Results - Last 24 Hours (Table) 07/25/20 07/25/20 07/25/20 Range/Units 02:17 08:26 08:26 RBC (4.30-5.90) m/uL Hgb (13.0-17.5) gm/dL Hct (39.0-53.0) % Plt Count (150-450) k/uL Sodium (137-145) mmol/L Chloride (98-107) mmol/L Glucose (74-99) mg/dL Calcium (8.4-10.2) mg/dL Ferritin 6588.9 H (22.0-322.0) ng/mL Total Bilirubin (0.2-1.3) mg/dL AST (17-59) U/L ALT (4-49) U/L Alkaline Phosphatase (38-126) U/L Total Protein (6.3-8.2) g/dL Total Protein (PEP) 5.5 L (6.2-8.2) g/dL Albumin (3.5-5.0) g/dL Urine Protein (Negative) Urine Ketones (Negative) Urine Blood (Negative) Urine Bilirubin (Negative) EBV Capsid Ag IgG Intrp POSITIVE A (NEGATIVE) EBV Nuc Ag IgG Interp POSITIVE A (NEGATIVE) 07/25/20 07/26/20 07/26/20 Range/Units 10:24 05:36 05:36 RBC 4.22 L (4.30-5.90) m/uL Hgb 12.9 L (13.0-17.5) gm/dL Hct 37.3 L (39.0-53.0) % Plt Count 133 L (150-450) k/uL Sodium 128 L (137-145) mmol/L Chloride 96 L (98-107) mmol/L Glucose 115 H (74-99) mg/dL Calcium 7.9 L (8.4-10.2) mg/dL Ferritin (22.0-322.0) ng/mL Total Bilirubin 6.8 H (0.2-1.3) mg/dL AST 308 H (17-59) U/L ALT 297 H (4-49) U/L Alkaline Phosphatase 322 H (38-126) U/L Total Protein 5.6 L (6.3-8.2) g/dL Total Protein (PEP) (6.2-8.2) g/dL Albumin 3.0 L (3.5-5.0) g/dL Urine Protein Trace H (Negative) Urine Ketones 1+ H (Negative) Urine Blood Small H (Negative) Urine Bilirubin 1+ H (Negative) EBV Capsid Ag IgG Intrp (NEGATIVE) EBV Nuc Ag IgG Interp (NEGATIVE) Microbiology - Last 24 Hours (Table) 07/25/20 03:39 Blood Culture - Preliminary Blood No Growth after 24 hours Assessment and Plan Assessment: This is a 29-year-old male with no significant past medical history who presented to the emergency room with flulike symptoms. Patient was evaluated in the ER and admitted to the hospital for further management of his medical problems noted below. 1. Sepsis without septic shock: May be attributed to viral syndrome. COVID-19 and influenza screen negative. No evidence of bacterial infection. Blood cultures negative to date Patient was given IV Unasyn in the ER. I would hold off any further antibiotic and monitor closely. 2. Transaminitis with hyperbilirubinemia: Probably secondary to viral syndrome. Computed tomography scan of the abdomen and pelvis and ultrasound showed no acute findings. Viral hepatitis panel negative. GI consulted for further evaluation, appreciate recommendations. EBV IgG positive but IgM negative suggesting old infection. CMV antibodies and LUCY screen negative. Patient denies alcohol or Tylenol use in both levels are negative. 3. Hypovolemic hyponatremia: Continue IV fluid hydration with normal saline at 75 mL per hour 4. DVT prophylaxis with subcu heparin Continue supportive care. Repeat lab work in the morning.
[2020-07-26] MEDS: SODIUM CHLORIDE 0.9% 1,000 ML IV SCH (11:31)
--- NOTE | 2020-07-26 11:54 | PN ---
PROGRESS NOTE DATE OF SERVICE: 07/26/2020 Patient is a 29-year-old pleasant white male admitted to the hospital with elevated LFTs with jaundice with fatigue, weakness, malaise and fever for the last 3-4 days duration. He remains the same today. He denies any abdominal pain. No nausea, no vomiting. Labs from today once again showed a bilirubin of 6.6 and serum transaminases in the range of 200s. PHYSICAL EXAMINATION: GENERAL: He appears comfortable. No apparent distress. VITAL SIGNS: Stable. Blood pressure is 122/66, pulse rate 75, temperature 99.1. HEENT: Examination unremarkable. Conjunctivae are pink. Sclerae anicteric. Oral cavity no lesions. NECK: No JVD or lymph node enlargement. CHEST: Clear to auscultation. HEART: Regular rate and rhythm. ABDOMEN: Soft. Bowel sounds are positive. No organomegaly. EXTREMITIES: No pedal edema. NEURO: He is alert and oriented x3. No focal deficits. LABS: From today WBC 5.8, hemoglobin 12.9, platelets are 133. Sodium 128, potassium 4.1, chloride 96, BUN and creatinine normal. T-bilirubin is 6.8, AST 308, ALT 297, alkaline phosphatase 322 and INR is 1.0. Hepatitis serologies for A, B and C are negative. Heterophile antibodies positive but EBV IgM antibody and BCA antibody is negative. EBV IgG antibody is positive. CMV IgM is negative. Serum alcohol less than 10. IMPRESSION: Elevated LFTs and jaundice, most likely related to acute hepatitis, possibly an acute viral syndrome given the clinical presentation of fatigue, weakness, myalgia, malaise, fever, chills for the last one week duration. So far, all serologies for hepatitis A, B, and C were negative. CMV negative. The EBV IgM antibody is negative. Coronavirus PCR is also negative. RECOMMENDATIONS: 1. Continue with symptomatic and supportive care. 2. Advance diet as tolerated. 3. Monitor LFTs on a daily basis. 4. Once the LFTs start improving and jaundice is improving, he can be discharged home in the next 1-2 days with close outpatient followup. The plan was discussed with the patient. He is agreeable to it. Thank you for this consultation. MMODL / IJN: [id number] /
[2020-07-27] MEDS: HEPARIN SODIUM,PORCINE 5,000 UNIT/ML 1 ML VIAL SQ SCH ×2 (06:58→20:51)
[2020-07-27] MEDS: PANTOPRAZOLE 40 MG TABLET PO SCH (06:58)
[2020-07-27] MEDS: SODIUM CHLORIDE 0.9% 1,000 ML IV SCH (07:01)
--- NOTE | 2020-07-27 11:25 | PN ---
PROGRESS NOTE DATE OF SERVICE: 07/27/2020 Patient is a 29-year-old pleasant white male admitted to the hospital with acute viral syndrome with malaise, fatigue, fever, chills, nausea, decreased appetite and jaundice as well as elevated LFTs. He remains the same. He denies any new symptoms. He had a T-max of a 100 early this morning. He reports no abdominal pain. No nausea, vomiting. Able to eat well. PHYSICAL EXAMINATION: GENERAL: Appears comfortable. VITAL SIGNS: Stable. Blood pressure 113/66, pulse 89, temperature 100. HEENT: Examination unremarkable. Conjunctivae are pink. Sclerae slightly icteric. Oral cavity, no lesions NECK: No JVD or lymph node enlargement. CHEST: Clear to auscultation. HEART: Regular rate and rhythm. ABDOMEN: Soft. Bowel sounds are positive. No organomegaly. EXTREMITIES: No pedal edema. NEURO: He is alert and oriented x3. No focal deficits. LABS: From today WBC 5.8, hemoglobin 12.9, platelets 133. Sodium 128, potassium 4.1, BUN and creatinine normal. T bilirubin is 6.8, AST 308, ALT 297, alkaline phosphatase 322. INR is 1.0. IMPRESSION: 1. Acute viral syndrome with elevated LFTs and jaundice all consistent with possible viral etiology. So far hepatitis serologies for A, B and C, EBV and CMV serologies for IgM antibodies were negative. However, the clinical and biochemical picture is more consistent with an acute viral syndrome and doubt we are dealing with any chronic liver disease. 2. Mild thrombocytopenia, probably related to an acute viral syndrome. RECOMMENDATION: 1. Continue with regular diet. 2. Continue with monitoring LFTs closely. 3. If his LFTs improve, he can be discharged home with close outpatient followup every 2-3 days. The plan was discussed with the patient. He is agreeable to it. Will repeat labs from today and tomorrow and further recommendations will be made. Thank you for this consultation. MMODL / CATHRYNN: [id number] /
[2020-07-27 11:52] LABS: African American GFR (CKD) 147.8 (60.0-200.0); Albumin 3.3 g/dL (3.80-4.90); Albumin/Globulin Ratio 1.74 (1.60-3.17); Anion Gap 6.4 mmol/L (4.00-12.00); BUN/Creat Ratio 18.57 Ratio (12.00-20.00); Calcium 7.8 mg/dL (8.7-10.3); Carbon Dioxide 26.6 mmol/L (21.6-31.8); Globulin 1.9 g/dL (1.6-3.3); Non-African American GFR(CKD) 127.5 (60.0-200.0); Total Bilirubin 6.8 mg/dL (0.2-1.2); Total Protein 5.2 g/dL (6.2-8.2)
--- NOTE | 2020-07-27 12:37 | P.PN ---
Subjective Progress Note Date: 07/27/20 Patient is feeling a lot better today. His lab work is not changed compared to yesterday. No other events overnight. Objective - Vital Signs Vital signs: Vital Signs Temp 100.0 F H 07/27/20 07:44 Pulse 89 07/27/20 07:44 Resp 16 07/27/20 07:44 BP 113/66 07/27/20 07:44 Pulse Ox 97 07/27/20 07:44 Intake & Output 07/26/20 07/27/20 07/27/20 18:59 06:59 18:59 Intake Total 400 200 Balance 400 200 Intake: Oral 400 200 Other: Voiding Method Toilet Toilet Toilet # Voids 2 - Exam General: The patient is awake and alert, in no distress Eye: there is normal conjunctiva bilaterally. Neck: The neck is supple, there is no JVD. Cardiovascular: Normal S1-S2, no S3-S4, no murmurs. Respiratory: Lungs clear to auscultation bilaterally Gastrointestinal: Abdomen is soft, nontender Musculoskeletal: There is no pedal edema. Neurological:. Speech is normal. Skin: Skin is warm and dry - Labs CBC & Chem 7: 07/26/20 05:36 07/27/20 06:46 Labs: Abnormal Lab Results - Last 24 Hours (Table) 07/27/20 Range/Units 06:46 Calcium 7.8 L (8.7-10.3) mg/dL Total Bilirubin 6.8 H (0.2-1.2) mg/dL AST 234 H (14-35) U/L ALT 310 H (10-49) U/L Alkaline Phosphatase 397 H (41-126) U/L Total Protein 5.2 L (6.2-8.2) g/dL Albumin 3.30 L (3.80-4.90) g/dL Microbiology - Last 24 Hours (Table) 07/25/20 03:39 Blood Culture - Preliminary Blood No Growth after 48 hours Assessment and Plan Assessment: This is a 29-year-old male with no significant past medical history who presented to the emergency room with flulike symptoms. Patient was evaluated in the ER and admitted to the hospital for further management of his medical problems noted below. 1. Sepsis without septic shock: May be attributed to viral syndrome. COVID-19 and influenza screen negative. No evidence of bacterial infection. Blood cultures and urinalysis negative. 2. Transaminitis with hyperbilirubinemia: Probably secondary to viral syndrome. Computed tomography scan of the abdomen and pelvis and ultrasound showed no acute findings. Viral hepatitis panel negative. GI consulted for further evaluation, appreciate recommendations. EBV IgG positive but IgM negative suggesting old infection. CMV antibodies and LUCY screen negative. Patient denies alcohol or Tylenol use in both levels are negative. 3. Hypovolemic hyponatremia: Improved with IV fluid hydration 4. DVT prophylaxis with subcu heparin Continue supportive care. Repeat lab work in the morning. Anticipate discharge home tomorrow
[2020-07-27] MEDS: IBUPROFEN 600 MG TAB PO PRN (22:05)
[2020-07-28 03:23] LABS: Herpes simplex I and/or II IgM 0.26 INDEX (<=0.90); Herpes simplex IgG I Ab 0.07 (< or = 0.90); Herpes simplex IgG II Ab 0.19 (< or = 0.90)
[2020-07-28 08:25] VITALS: BP 107/70; PULSE 76; RESP 18; TEMP 97.5
[2020-07-28] MEDS: PANTOPRAZOLE 40 MG TABLET PO SCH (08:58)
--- NOTE | 2020-07-28 11:00 | P.DS ---
Providers Date of admission: 07/25/20 06:57 Expected date of discharge: 07/28/20 Attending physician: Radha Lugo MD Consults: 07/25/20 06:57 Consult Physician Routine Consulting Provider: Terry Poole Consult Reason/Comments: transaminitis Do you want consulting provider notified?: Yes Primary care physician: Stated None Hospital Course: This is a 29-year-old male with no significant past medical history who presented to the emergency room with flulike symptoms. Patient was evaluated in the ER and admitted to the hospital for further management of his medical proble ms noted below. 1. Sepsis without septic shock: May be attributed to viral syndrome. COVID-19 and influenza screen negative. No evidence of bacterial infection. Blood cultures and urinalysis negative. 2. Transaminitis with hyperbilirubinemia: Probably secondary to viral syndrome. Computed tomography scan of the abdomen and pelvis and ultrasound showed no acute findings. Viral hepatitis panel negative. GI consulted for further evaluation, appreciate recommendations. EBV IgG positive but IgM negative suggesting old infection. CMV antibodies and LUCY screen negative. Patient denies alcohol or Tylenol use in both levels are negative. 3. Hypovolemic hyponatremia: Improved with IV fluid hydration Patient's overall condition improved significantly throughout his hospital stay. He'll be discharged home in a stable condition. He will follow-up with GI in the office next week for repeat lab work. He was advised to avoid any medication that can affect his liver including Tylenol. Patient Condition at Discharge: Fair Plan - Discharge Summary Discharge Rx Participant: Yes New Discharge Prescriptions: No Action No Known Home Medications Discharge Medication List No Known Home Medications 07/25/20 [History] Follow up Appointment(s)/Referral(s): Ese Friedman MD [STAFF PHYSICIAN] - 1 Week Activity/Diet/Wound Care/Special Instructions: Please go to [email or web address] to find a local primary care physician. Discharge Disposition: HOME SELF-CARE
[2020-07-28 11:44] LABS: Ceruloplasmin 36.3 mg/dL (20.0-60.0)
[2020-07-28] MEDS: HEPARIN SODIUM,PORCINE 5,000 UNIT/ML 1 ML VIAL SQ SCH (12:06)
[2020-07-28 13:57] LABS: Albumin 2.98 g/dL (3.80-4.90); Gamma Globulin 0.72 g/dL (0.70-1.50)
[2020-07-28 14:51] LABS: Liver/Kidney Microsome Antibod 2.4 UNITS (<=20)
--- NOTE | 2020-07-28 15:53 | P.PN ---
Subjective Progress Note Date: 07/28/20 Principal diagnosis: Elevated LFTs This patient is a pleasant 29-year-old white male who was admitted to the hospital with acute viral syndrome with malaise, fatigue, fever, chills, nausea, jaundice and decreased appetite. In afebrile for the past 24 hours, he denies any abdominal pain, nausea, or vomiting. He is tolerating his diet well. Viral studies to date have been negative. Objective - Vital Signs Vital signs: Vital Signs Temp 97.5 F L 07/28/20 08:00 Pulse 76 07/28/20 08:00 Resp 18 07/28/20 08:00 BP 107/70 07/28/20 08:00 Pulse Ox 98 07/28/20 08:00 Intake & Output 07/27/20 07/28/20 07/28/20 18:59 06:59 18:59 Intake Total 200 950 Balance 200 950 Intake: Oral 200 950 Other: Voiding Method Toilet Toilet # Voids 1 1 - Exam General appearance: The patient is alert, oriented, appears in no acute distress. HET: Head is normocephalic and atraumatic. Conjunctiva pink. Sclera icteric. Neck: Supple without lymphadenopathy. Abdomen: Soft, nontender, nondistended with bowel sounds. No guarding or rigidity. Extremities: Normal skin color and turgor. No pedal edema Skin: No rashes, jaundice Neurological: No focal deficits. Alert and oriented 3. - Labs CBC & Chem 7: 07/26/20 05:36 07/27/20 06:46 Labs: Abnormal Lab Results - Last 24 Hours (Table) 07/27/20 Range/Units 06:46 Calcium 7.8 L (8.7-10.3) mg/dL Total Bilirubin 6.8 H (0.2-1.2) mg/dL AST 234 H (14-35) U/L ALT 310 H (10-49) U/L Alkaline Phosphatase 397 H (41-126) U/L Total Protein 5.2 L (6.2-8.2) g/dL Albumin 3.30 L (3.80-4.90) g/dL Microbiology - Last 24 Hours (Table) 07/25/20 03:39 Blood Culture - Preliminary Blood No Growth after 72 hours Assessment and Plan Assessment: 1. Acute viral syndrome with elevated LFTs and jaundice CONSISTENT with possible viral etiology. So far hepatitis serologies for ABC, EBV and CMV serologies have been negative to date. Clinically and and biochemical picture is more consistent with acute viral syndrome and doubt dealing with any chronic liver disease. 2. Mild thrombocytopenia, probably related to an acute viral syndrome Plan: 1. Continue regular diet 2. Continue monitoring LFTs closely 3. Patient may be discharged home with close follow-up and monitoring of LFTs. Patient will be scheduled this Tuesday with gastroenterology. Dr. Anastasiia Friedman I agree with the dictator's note, documented as a scribe by Megan Grant.
[2020-07-28 15:55] LABS: African American GFR (CKD) 139.9 (60.0-200.0); Albumin 3.7 g/dL (3.80-4.90); Albumin/Globulin Ratio 1.68 (1.60-3.17); Anion Gap 8.8 mmol/L (4.00-12.00); Calcium 8.5 mg/dL (8.7-10.3); Carbon Dioxide 28.2 mmol/L (21.6-31.8); Globulin 2.2 g/dL (1.6-3.3); Non-African American GFR(CKD) 120.7 (60.0-200.0); Potassium 4.5 mmol/L (3.5-5.5); Total Bilirubin 7.6 mg/dL (0.2-1.2); Total Protein 5.9 g/dL (6.2-8.2)
== END 2020-07-28 15:09 | disposition home or self-care (01) ==
LOC: EC 01:25 → INTOOBSV 06:57 → 4SSUR 06:57 → UNDODISIN 07-28 15:09
PROVIDERS: ADMIT Internal Medicine; ATTEND Internal Medicine
DX: A41.9 Sepsis, unspecified organism (principal); B34.9 Viral infection, unspecified; E87.1 Hypo-osmolality and hyponatremia; D69.6 Thrombocytopenia, unspecified; Z20.822 Contact with and (suspected) exposure to COVID-19; E86.1 Hypovolemia; E80.7 Disorder of bilirubin metabolism, unspecified; R74.01 Elevation of levels of liver transaminase levels; F17.200 Nicotine dependence, unspecified, uncomplicated; Z83.3 Family history of diabetes mellitus; Z82.49 Family history of ischemic heart disease and other diseases of the circulatory system
CPT/HCPCS: 96376; 96361 ×3; 96372 ×3; 96375; 96365; 96366; 99291; 36415; 93005; 86376; 86665 ×2; 80053 ×4; 80074; 86696; 86694; 86695; 86663; 82728; 82140; 82248; 82977; 83605; 83615; 83690; 83735; 85025; 85027; 85610 ×2; 85730; 86140; 86308; 81001; 87040; 83516; 82103; 82105; 86664; 84165; 86644; 86645; 82390; 86038; 80143; 87502; 87635; 71045; 76705; 74177; G0378 ×4; G0480; U0003; U0005; J1644 ×3; J0295; C9113 ×2; Q9967; 80320